=== PATIENT | female | born 1970 | race American Indian/Alaskan Native ===

== ENCOUNTER 2019-03-18 15:15 | Emergency (ER) | payer BC ==
--- NOTE | 2019-03-18 17:47 | Emergency Department Report ---
Blank Doc - Documentation Documentation: The patient was seen in triage for SYNCOPE WITH RESUIDAL LIP LACERATION INTERNAL AND EXTERNAL. NO CHEST PAIN OR SOB. Labs/imaging ordered to evaluate for a cause of this complaint. Vital signs reviewed, patient awake and alert in NAD.
[2019-03-18 18:13] LABS: Basophils % (Auto) 0.4 % (0.0-1.8); Eosinophils % (Auto) 0.3 % (0.0-4.3); Hematocrit 38.8 % (30.3-42.9); Hemoglobin 13.6 gm/dl (10.1-14.3); Lymphocytes # (Auto) 1.3 K/mm3 (1.2-5.4); Lymphocytes % (Auto) 22.8 % (13.4-35.0); Mean Corpuscular HGB Conc 35 % (30-34); Mean Corpuscular Volume 94 fl (79-97); Monocytes # (Auto) 0.4 K/mm3 (0.0-0.8); Monocytes % (Auto) 7.5 % (0.0-7.3); Platelet Count 196 K/mm3 (140-440); Red Blood Count 4.11 M/mm3 (3.65-5.03); Red Cell Distribution Width 13.2 % (13.2-15.2)
--- NOTE | 2019-03-18 18:18 | XRay Report ---
CHEST PA AND LATERAL VIEWS INDICATION: SYNCOPE. COMPARISON: None. FINDINGS: Support devices: None. Heart: Within normal limits. Lungs/Pleura: No acute pulmonary or pleural findings. IMPRESSION: 1. No significant abnormality. Signer Name: Daniel Mcdonald MD Signed: 03/18/2019 6:13 PM Workstation Name: [id number]
[2019-03-18] MEDS ORDERED: SODIUM CHLORIDE 0.9% 1000 ML 1,000 ML IV ONE (18:28)
[2019-03-18] MEDS ORDERED: ACETAMINOPHEN 500 MG TAB PO ONE (18:29)
[2019-03-18] MEDS ORDERED: MECLIZINE 25 MG TAB PO ONE (18:29)
[2019-03-18 18:41] LABS: Alanine Aminotransferase 10 units/L (7-56); Albumin 4.4 g/dL (3.9-5); BUN/Creatinine Ratio 21; Blood Urea Nitrogen 15 mg/dL (7-17); Calcium 9.6 mg/dL (8.4-10.2); Hemolysis Index 8
--- NOTE | 2019-03-18 19:03 | Cat Scan Report ---
CT head/brain wo con INDICATION / CLINICAL INFORMATION: 48 years Female; Syncope. TECHNIQUE: Routine CT head without contrast. All CT scans at this location are performed using CT dos e reduction for ALARA by means of automated exposure control. COMPARISON: None. FINDINGS: BRAIN / INTRACRANIAL CONTENTS: There is mild cerebral white matter disease which includes the externa l capsules and most consistent with microvascular angiopathy. The ventricular system is within normal limits in size and configuration. There is no clear CT evidence of acute intracranial hemorrhage or significant mass effect at. There are incidental smaller foci of calcification within the basal gangl ia. ORBITS: No significant abnormality of visualized orbits. SINUSES / MASTOIDS: No significant abnormality the visualized paranasal sinuses or mastoid air cells. CRANIOCERVICAL JUNCTION: No significant abnormality. ADDITIONAL FINDINGS: None. IMPRESSION: 1. There is microvascular angiopathy as described without CT evidence of acute intracranial hemorrhag e. Signer Name: Shlomo Arreguin MD Signed: 03/18/2019 6:58 PM Workstation Name: [id number]
--- NOTE | 2019-03-18 22:07 | Emergency Department Report ---
ED Syncope HPI - General Chief Complaint: Syncope Stated Complaint: FAINTED/LIP INJURY Time Seen by Provider: 03/18/19 17:45 Source: patient Exam Limitations: no limitations - History of Present Illness Initial Comments: Patient is a 48-year-old -[place] female with a history of hypothyroidism who presents to the ED with complaint of lower lip laceration with bleeding after she fell down at home due to a single episode of syncope with brief loss of consciousness about 8 hours ago. Patient states that she had not been feeling well in the last 24 hours, characterized by generalized weakness intermittent abdominal bloating with nausea and that about 12 hours ago she woke up with persistent abdominal discomfort and went to the bathroom for bowel movement hoping to relieve her symptoms bowel movement. Patient says that she only voided urine but was unable to have a bowel movement. Patient states that she the bathroom and started walking back to her bed but was woken up by her boyfriend and family surrounding. Patient states that she cannot remember events prior to and after the syncope episode. Patient states that she may have hit her mouth on the toilet seat and in the process bit the lower lip and thereby resulting in lower lip laceration. Patient denies shortness of breath, chest pain, headache, dizziness, change in vision, palpitations, seizures, cough, abdominal pain, fever, chills, nasal and sinus congestion, or upper and lower extremities weakness. Timing/Prior Episodes: no prior history Precipitating Factors: Positive: lightheadedness, nausea. Negative: blurred vision, confusion, diaphoresis, pain, recent head trauma, rapid heart beat, unknown Context: standing Loss of Consciousness: brief (seconds) Current Symptoms: back to normal, injury (lower lip laceration). denies: blurred vision, chest pain, diaphoresis, dizziness, headache, lightheadedness, loss of bladder control, loss of bowel control, motionless, nausea, pale, shallow/rapid breathing, weak/absent pulse - Related Data Allergies/Adverse Reactions: Allergies No Known Allergies Allergy (Unverified 03/18/19 17:49) Home Medications: Ambulatory Orders Ibuprofen [Motrin] 600 mg PO Q8H PRN #20 tablet 03/18/19 Meclizine [Antivert] 25 mg PO Q8H PRN #30 tablet 03/18/19 cephALEXin [Keflex] 500 mg PO Q8HR #30 cap 03/18/19 ED Review of Systems ROS: Stated complaint: FAINTED/LIP INJURY Other details as noted in HPI Constitutional: malaise. denies: chills, fever Eyes: denies: eye pain, eye discharge, vision change ENT: other (lower lip laceration). denies: ear pain, throat pain Respiratory: denies: cough, shortness of breath, wheezing Cardiovascular: denies: chest pain, palpitations Endocrine: no symptoms reported Gastrointestinal: nausea. denies: abdominal pain, vomiting, diarrhea Genitourinary: denies: urgency, dysuria, discharge Musculoskeletal: denies: back pain, joint swelling, arthralgia Skin: denies: rash, lesions Neurological: other (syncope). denies: headache, weakness, paresthesias Psychiatric: denies: anxiety, depression Hematological/Lymphatic: denies: easy bleeding, easy bruising ED Past Medical Hx - Past Medical History Previous Medical History?: Yes Additional medical history: hyperthyroidism - Surgical History Past Surgical History?: Yes Additional Surgical History: thyroid X 2, tonsils, 2 c section - Social History Smoking Status: Never Smoker Substance Use Type: None - Medications Home Medications: Home Medications Medication Instructions Recorded Confirmed Last Taken Type Ibuprofen [Motrin] 600 mg PO Q8H PRN #20 tablet 03/18/19 Unknown Rx Meclizine [Antivert] 25 mg PO Q8H PRN #30 tablet 03/18/19 Unknown Rx cephALEXin [Keflex] 500 mg PO Q8HR #30 cap 03/18/19 Unknown Rx ED Physical Exam - General Limitations: No Limitations General appearance: alert, in no apparent distress - Head Head exam: Present: other (lower lip laceration) - Eye Eye exam: Present: normal appearance, PERRL, EOMI Pupils: Present: normal accommodation - ENT ENT exam: Present: normal orophraynx, mucous membranes moist, TM's normal bilaterally, normal external ear exam, other (lower lip laceration) - Neck Neck exam: Present: normal inspection, full ROM. Absent: tenderness - Respiratory Respiratory exam: Present: normal lung sounds bilaterally. Absent: respiratory distress, wheezes, rales, rhonchi, chest wall tenderness, accessory muscle use - Cardiovascular Cardiovascular Exam: Present: regular rate, normal rhythm, normal heart sounds. Absent: systolic murmur, diastolic murmur, rubs, gallop - GI/Abdominal GI/Abdominal exam: Present: soft, normal bowel sounds. Absent: tenderness, guarding, rebound, hyperactive bowel sounds, hypoactive bowel sounds - Extremities Exam Extremities exam: Present: normal inspection, full ROM, normal capillary refill - Back Exam Back exam: Present: normal inspection, full ROM. Absent: tenderness, muscle spasm, paraspinal tenderness - Neurological Exam Neurological exam: Present: alert, oriented X3, CN II-XII intact, normal gait, reflexes normal - Psychiatric Psychiatric exam: Present: normal affect, normal mood - Skin Skin exam: Present: warm, dry, intact, normal color, other (Bleeding lower lip laceration). Absent: rash ED Course Vital Signs 03/18/19 15:45 Temperature 98.1 F Pulse Rate 75 Respiratory 18 Rate Blood Pressure 118/79 O2 Sat by Pulse 99 Oximetry ED Medical Decision Making - Lab Data Result diagrams: 03/18/19 17:56 03/18/19 17:56 - EKG Data Rate: bradycardia - EKG Data 03/18/19 22:21 EKG shows sinus barricading with ventricular rate of [address] or T-wave abnormalities. - Radiology Data Radiology results: report reviewed, image reviewed Findings [facility] [address] [place] [address] Cat Scan Report Signed Patient: CHARLES BURNHAM MR#: [id number] : 1970 Acct:[id number] Age/Sex: 48 / F ADM Date: 03/18/19 Loc: ED Attending Dr: Ordering Physician: NUPUR LACY Date of Service: 03/18/19 Procedure(s): CT head/brain wo con Accession Number(s): [id number] cc: NUPUR LACY CT head/brain wo con INDICATION / CLINICAL INFORMATION: 48 years Female; Syncope. TECHNIQUE: Routine CT head without contrast. All CT scans at this location are performed using CT dose reduction for ALARA by means of automated exposure control. COMPARISON: None. FINDINGS: BRAIN / INTRACRANIAL CONTENTS: There is mild cerebral white matter disease which includes the external capsules and most consistent with microvascular angiopathy. The ventricular system is wi thin normal limits in size and configuration. There is no clear CT evidence of acute intracranial hemorrhage or significant mass effect at. There are incidental smaller foci of calcification within the basal ganglia. ORBITS: No significant abnormality of visualized orbits. SINUSES / MASTOIDS: No significant abnormality the visualized paranasal sinuses or mastoid air cells. CRANIOCERVICAL JUNCTION: No significant abnormality. ADDITIONAL FINDINGS: None. IMPRESSION: 1. There is microvascular angiopathy as described without CT evidence of acute intracranial hemorrhage. Signer Name: Shlomo Arreguin MD Signed: 03/18/2019 6:58 PM Workstation Name: [id number] Transcribed By: MR Dictated By: Shlomo Arreguin MD Electronically Authenticated By: Shlomo Arreguin MD Signed Date/Time: 03/18/191857 DD/ 54 TD/TT: - Medical Decision Making This is a 48-year-old -[place] female with no past medical history except hypothyroidism who presented to the ED with lower lip laceration due to following this single syncope episode at home about 8 hours ago. In the ED, patient is alert and oriented 3 and is not in distress. EKG shows sinus bradycardia with ventricular rate of [address] or T-wave abnormalities. Lab test results were reviewed and are nonactionable including initial and repeat troponin. Chest x-ray shows no acute cardiopulmonary abnormalities or pneumonitis. Head CT scan without contrast shows mild cerebral white matter disease which includes the external capsules and most consistent with microvascular angiopathy. The ventricular system is within normal limits in size and configuration. There is no clear CT evidence of acute intracranial hemorrhage or significant mass effect at. There are incidental smaller foci of calcification within the basal ganglia. These findings were discussed with the ED attending physician was advised the patient be discharged home as these changes are chronic and not acute. Patient had the lower lip laceration cleaned thoroughly and a Dermabond applied to close the wound. Patient treated for pain in the ED and also given normal saline 1 L IV bolus. The orthostatic blood pressure the patient was also normal. There for the patient's syncope episode may have been from vasovagal process having stewed fast after sitting down on the toilet seat. On reevaluation, patient is walking normally in the ED stating with no abnormalities. Patient was discharged home on Antivert, prophylactic antibiotics for lower lip laceration on pain medications and is advised to follow-up with her primary care physician in 3-5 days for reevaluation or return to the ED immediately if symptoms get worse. - Differential Diagnosis Syncope; Head injury; Laceration; ACS; Seizures Critical care attestation.: If time is entered above; I have spent that time in minutes in the direct care of this critically ill patient, excluding procedure time. ED Disposition Clinical Impression: Vasovagal syncope Laceration of lower lip Qualifiers: Encounter type: initial encounter Qualified Code(s): S01.511A - Laceration without foreign body of lip, initial encounter Contusion of face Qualifiers: Encounter type: initial encounter Qualified Code(s): S00.83XA - Contusion of other part of head, initial encounter Disposition: TO HOME OR SELFCARE Is pt being admited?: No Does the pt Need Aspirin: No Condition: Stable Instructions: Syncope (ED), Laceration (ED), Skin Adhesive Care (ED), Scalp Contusion in Adults (ED) Additional Instructions: Take medications with food, drink plenty of fluids and follow-up with your primary care physician in 3-5 days for reevaluation. Return to the ED immediately if symptoms get worse. Prescriptions: Meclizine [Antivert] 25 mg PO Q8H PRN #30 tablet PRN Reason: Vertigo cephALEXin [Keflex] 500 mg PO Q8HR #30 cap Ibuprofen [Motrin] 600 mg PO Q8H PRN #20 tablet PRN Reason: Pain Referrals: CHIKA ADAMS MD [Staff Physician] - 3-5 Days Time of Disposition: 22:09 Print Language: BELARUSIAN
[2019-03-18 22:17] VITALS: BP 133/63
== END 2019-03-18 22:31 | disposition home or self-care (01) ==
LOC: ED 15:15
DX: S01.511A Laceration without foreign body of lip, initial encounter (principal); R55 Syncope and collapse; E05.90 Thyrotoxicosis, unspecified without thyrotoxic crisis or storm; W19.XXXA Unspecified fall, initial encounter; Y93.89 Activity, other specified; Y92.89 Other specified places as the place of occurrence of the external cause; Y99.8 Other external cause status
CPT/HCPCS: 36415; 70450; 71046; 80053; 84443; 84484; 85025; 93005; 93010; 99284; J7030

== ENCOUNTER 2020-01-29 12:39 | Emergency (ER) | payer SELFPAY ==
--- NOTE | 2020-01-29 13:07 | Emergency Department Report ---
Blank Doc - Documentation Documentation: 49-year-old female that presents with right flank pain and cramping senastion to right leg. Denies any injuries. Stated has not been taking Levothyorxin over 1 year. This initial assessment/diagnostic orders/clinical plan/treatment(s) is/are subject to change based on patient's health status, clinical progression and re- assessment by fellow clinical providers in the ED. Further treatment and workup at subsequent clinical providers discretion. Patient/guardians urged not to elope from the ED as their condition may be serious if not clinically assessed and managed. Initial orders include: 1- Patient sent to [facility] for further evaluation and treatment 2- labs 3- UA
[2020-01-29 13:29] LABS: Basophils % (Auto) 0.3 % (0.0-1.8); Eosinophils % (Auto) 1.2 % (0.0-4.3); Hematocrit 39.8 % (30.3-42.9); Hemoglobin 13.9 gm/dl (10.1-14.3); Lymphocytes # (Auto) 1.7 K/mm3 (1.2-5.4); Mean Corpuscular HGB Conc 35 % (30-34); Mean Corpuscular Volume 98 fl (79-97); Monocytes # (Auto) 0.3 K/mm3 (0.0-0.8); Monocytes % (Auto) 9.1 % (0.0-7.3); Platelet Count 180 K/mm3 (140-440); Red Blood Count 4.06 M/mm3 (3.65-5.03); Red Cell Distribution Width 13.2 % (13.2-15.2)
[2020-01-29 13:46] LABS: BUN/Creatinine Ratio 14; Blood Urea Nitrogen 11 mg/dL (7-17); Hemolysis Index 3
[2020-01-29 13:46] LABS: Bilirubin,Urine NEG (Negative); Blood,Urine NEG (Negative); Color,Urine Straw (Yellow); Protein,Urine <15 mg/dL mg/dL (Negative); Urobilinogen,Urine < 2.0 mg/dL (<2.0); WBC,Urine < 1.0 /HPF (0.0-6.0)
--- NOTE | 2020-01-29 14:14 | Emergency Department Report ---
ED General Adult HPI - General Chief complaint: Back Pain/Injury Stated complaint: LOW BACK PAIN/RT LEG PAIN Time Seen by Provider: 01/29/20 13:07 Source: patient Mode of arrival: Ambulatory Limitations: No Limitations - History of Present Illness Initial comments: 49-year-old female presenting with chief complaint of right leg pain and weakness which has been going on for several months, also reporting some intermittent lower back pain on the right side. She denies any numbness in the leg, denies any bowel or bladder dysfunction/changes and states that she felt that she finally needed to see someone because it has not been getting better and has been going on for so long. Denies any fevers or other complaints. Pain is rated as moderate at times worsened with certain movements better with certain positions. - Related Data Previous Rx's Medication Instructions Recorded Last Taken Type Ibuprofen [Motrin] 600 mg PO Q8H PRN #20 tablet 03/18/19 Unknown Rx Meclizine [Antivert] 25 mg PO Q8H PRN #30 tablet 03/18/19 Unknown Rx cephALEXin [Keflex] 500 mg PO Q8HR #30 cap 03/18/19 Unknown Rx Cyclobenzaprine [Flexeril] 10 mg PO TID PRN #15 tablet 01/29/20 Unknown Rx Levothyroxine [Synthroid] 100 mcg PO QAM #90 tablet 01/29/20 Unknown Rx Prednisone [predniSONE 10 mg 10 mg PO .TAPER #1 tab.ds.pk 01/29/20 Unknown Rx (6-Day Pack, 21 Tabs)] Allergies Allergy/AdvReac Type Severity Reaction Status Date / Time No Known Allergies Allergy Unverified 03/18/19 17:49 ED Review of Systems ROS: Stated complaint: LOW BACK PAIN/RT LEG PAIN Other details as noted in HPI Comment: All other systems reviewed and negative Musculoskeletal: as per HPI ED Past Medical Hx - Past Medical History Previous Medical History?: No Additional medical history: hyperthyroidism - Surgical History Additional Surgical History: thyroid X 2, tonsils, 2 c section - Social History Smoking Status: Never Smoker - Medications Home Medications: Home Medications Medication Instructions Recorded Confirmed Last Taken Type Ibuprofen [Motrin] 600 mg PO Q8H PRN #20 tablet 03/18/19 Unknown Rx Meclizine [Antivert] 25 mg PO Q8H PRN #30 tablet 01/07/20 Unknown Rx cephALEXin [Keflex] 500 mg PO Q8HR #30 cap 03/18/19 Unknown Rx Cyclobenzaprine [Flexeril] 10 mg PO TID PRN #15 tablet 01/29/20 Unknown Rx Levothyroxine [Synthroid] 100 mcg PO QAM #90 tablet 01/29/20 Unknown Rx Prednisone [predniSONE 10 mg 10 mg PO .TAPER #1 tab.ds.pk 01/29/20 Unknown Rx (6-Day Pack, 21 Tabs)] ED Physical Exam - General Limitations: No Limitations General appearance: alert, in no apparent distress - Head Head exam: Present: atraumatic, normocephalic - Eye Eye exam: Present: normal appearance - ENT ENT exam: Present: mucous membranes moist - Neck Neck exam: Present: normal inspection - Respiratory Respiratory exam: Present: normal lung sounds bilaterally. Absent: respiratory distress - Cardiovascular Cardiovascular Exam: Present: regular rate, normal rhythm. Absent: systolic murmur, diastolic murmur, rubs, gallop - GI/Abdominal GI/Abdominal exam: Present: soft, normal bowel sounds. Absent: distended, tenderness, guarding, rebound - Extremities Exam Extremities exam: Present: normal inspection, other (Some tenderness over the lateral right hip) - Back Exam Back exam: Present: normal inspection, other (Pain in the area of the right sciatic notch, no midline spinal pain or tenderness, positive straight leg raise). Absent: vertebral tenderness - Neurological Exam Neurological exam: Present: alert, oriented X3, other (Right leg with 4+ out of 5 strength, patient states that this is chronic, diminished patellar reflex) - Psychiatric Psychiatric exam: Present: normal affect, normal mood - Skin Skin exam: Present: warm, dry, intact, normal color. Absent: rash ED Course Vital Signs 01/29/20 12:58 Temperature 97.6 F Pulse Rate 47 L Respiratory 18 Rate Blood Pressure 173/91 O2 Sat by Pulse 97 Oximetry ED Medical Decision Making - Lab Data Result diagrams: 01/29/20 13:15 01/29/20 13:15 - Radiology Data Radiology results: report reviewed Right hip and L-spine x-rays show degenerative changes - Medical Decision Making Patient presents with low back pain rating down the right leg, states that it has been going on for quite some time but she thought she should get seen and have some x-rays done. She states that she has not seen a primary care doctor or any specialist for this problem and that her leg has been weak for years and there are no acute symptoms or symptoms that have changed recently. No bowel or bladder changes, no saddle anesthesia. On my exam there is some mild weakness to the right lower extremity with diminished patellar reflexes, pain in the area of the right sciatic notch. No midline spinal pain or tenderness. I do not see any indication for advanced MRI imaging at this time as suspicion for cauda equina is low and findings are chronic in nature per patient. I did advise that we will obtain x-rays, offered medications which she states she does not like to take but recommend outpatient follow-up with neurosurgery. Imaging does show degenerative changes as expected, labs show quite high TSH, will resume her 100 mcg daily dosage that she has been off of for several months. Also recommend outpatient follow-up with orthopedics or neurosurgery. - Differential Diagnosis Sciatica, arthritis, malignancy Critical care attestation.: If time is entered above; I have spent that time in minutes in the direct care of this critically ill patient, excluding procedure time. ED Disposition Clinical Impression: Right leg pain Hypothyroidism Qualifiers: Hypothyroidism type: unspecified Qualified Code(s): E03.9 - Hypothyroidism, unspecified Disposition: DC-01 TO HOME OR SELFCARE Is pt being admited?: No Condition: Stable Instructions: Hypothyroidism, Sciatica Prescriptions: Cyclobenzaprine [Flexeril] 10 mg PO TID PRN #15 tablet PRN Reason: Muscle Spasm Prednisone [predniSONE 10 mg (6-Day Pack, 21 Tabs)] 10 mg PO .TAPER #1 tab.ds.pk Levothyroxine [Synthroid] 100 mcg PO QAM #90 tablet Referrals: DEL KAY MD [Staff Physician] - 3-5 Days DL JIANG MD [Staff Physician] - 3-5 Days Time of Disposition: 14:25
--- NOTE | 2020-01-29 14:17 | XRay Report ---
RIGHT HIP AND PELVIS 2 VIEWS LUMBAR SPINE 3 VIEWS INDICATION: hip pain. Low back pain. COMPARISON: No relevant prior imaging study available. FINDINGS: Right hip: There are advanced osteoarthrosis changes at the hips bilaterally evidenced by severe join t space narrowing and subchondral changes. There is a prominent subchondral cyst in the left superior acetabulum. No acute, displaced fracture, dislocation, or femoral head osteonecrosis is seen. Pubic symphysis and SI joints are within normal limits. Punctate phleboliths are noted in the pelvis. Lumbar spine: No acute skeletal abnormality. There is moderate disc space narrowing at L2-3. Mild spo ndylosis is noted throughout the remainder of the lumbar spine. Alignment is normal. IMPRESSION: 1. No acute findings. 2. Degenerative changes as above. Signer Name: Daniel Mcdonald MD Signed: 01/29/2020 2:12 PM Workstation Name: [id number]
[2020-01-29 15:40] VITALS: BP 153/97
== END 2020-01-29 15:02 | disposition home or self-care (01) ==
LOC: ED 12:39
DX: M79.604 Pain in right leg (principal); E03.9 Hypothyroidism, unspecified; Z79.899 Other long term (current) drug therapy
CPT/HCPCS: 36415; 72100; 80048; 81001; 84443; 85025; 99283

== ENCOUNTER 2021-04-06 11:53 | Emergency (ER) | payer BC ==
[2021-04-06 12:12] VITALS: BP 164/95
--- NOTE | 2021-04-06 13:18 | Emergency Department Report ---
ED Syncope HPI - General Chief Complaint: Syncope Stated Complaint: HIT HEAD RGHT SIDE Time Seen by Provider: 04/06/21 13:14 - History of Present Illness Initial Comments: Patient presents secondary to syncope. She had been smoking marijuana. She felt she had to go to the bathroom. After going to the bathroom she stood up, felt like she was moving in slow motion, and then passed out. She has had this happen before. She states that frequently when she smokes marijuana she passes out and faints. And also was related to going to the restroom. Patient had no chest pain or palpitations. She had no shortness of breath. She states that she did hit her head, but just scraped it. This happened last night. She decided to come in today to be seen. She has no symptoms at this time. She does not feel dizzy or lightheaded. She has not been ill. - Related Data Allergies/Adverse Reactions: Allergies No Known Allergies Allergy (Verified 04/06/21 12:12) Home Medications: Ambulatory Orders Ibuprofen [Motrin] 600 mg PO Q8H PRN #20 tablet 03/18/19 Meclizine [Antivert] 25 mg PO Q8H PRN #30 tablet 03/18/19 cephALEXin [Keflex] 500 mg PO Q8HR #30 cap 03/18/19 Cyclobenzaprine [Flexeril] 10 mg PO TID PRN #15 tablet 01/29/20 Levothyroxine [Synthroid] 100 mcg PO QAM #90 tablet 01/29/20 Prednisone [predniSONE 10 mg (6-Day Pack, 21 Tabs)] 10 mg PO .TAPER #1 tab.ds.pk 01/29/20 ED Review of Systems ROS: Stated complaint: HIT HEAD RGHT SIDE Other details as noted in HPI Comment: All other systems reviewed and negative Constitutional: denies: fever Eyes: denies: vision change ENT: denies: throat pain Respiratory: denies: cough Cardiovascular: denies: chest pain Endocrine: denies: unexplained weight loss Gastrointestinal: denies: abdominal pain Genitourinary: denies: dysuria Musculoskeletal: denies: back pain Skin: denies: rash Neurological: as per HPI Hematological/Lymphatic: denies: easy bruising ED Past Medical Hx - Past Medical History Additional medical history: hyperthyroidism - Surgical History Additional Surgical History: thyroid X 2, tonsils, 2 c section - Family History Family history: no significant - Social History Smoking Status: Never Smoker - Medications Home Medications: Home Medications Medication Instructions Recorded Confirmed Last Taken Type Ibuprofen [Motrin] 600 mg PO Q8H PRN #20 tablet 03/18/19 Unknown Rx Meclizine [Antivert] 25 mg PO Q8H PRN #30 tablet 03/18/19 Unknown Rx cephALEXin [Keflex] 500 mg PO Q8HR #30 cap 03/18/19 Unknown Rx Cyclobenzaprine [Flexeril] 10 mg PO TID PRN #15 tablet 01/29/20 Unknown Rx Levothyroxine [Synthroid] 100 mcg PO QAM #90 tablet 01/29/20 Unknown Rx Prednisone [predniSONE 10 mg 10 mg PO .TAPER #1 tab.ds.pk 01/29/20 Unknown Rx (6-Day Pack, 21 Tabs)] ED Physical Exam - General Limitations: No Limitations, Other (Pulse ox noted and normal) General appearance: alert, in no apparent distress - Head Head exam: Present: normocephalic, other (Scalp abrasion to the right parietal area) - Eye Eye exam: Present: normal appearance, PERRL, EOMI. Absent: scleral icterus - ENT ENT exam: Present: normal orophraynx, normal external ear exam - Neck Neck exam: Present: normal inspection. Absent: tenderness, meningismus - Respiratory Respiratory exam: Present: normal lung sounds bilaterally. Absent: respiratory distress - Cardiovascular Cardiovascular Exam: Present: regular rate, normal rhythm - GI/Abdominal GI/Abdominal exam: Present: soft. Absent: distended - Extremities Exam Extremities exam: Present: normal capillary refill. Absent: calf tenderness - Back Exam Back exam: Absent: CVA tenderness (R), CVA tenderness (L), vertebral tenderness - Neurological Exam Neurological exam: Present: alert, oriented X3, CN II-XII intact, normal gait, reflexes normal, other (NIH score 0). Absent: motor sensory deficit - Psychiatric Psychiatric exam: Present: normal affect, normal mood - Skin Skin exam: Present: warm, dry ED Course Vital Signs 04/06/21 12:11 Temperature 98.3 F Pulse Rate 63 Respiratory 14 Rate Blood Pressure 164/95 [Left] O2 Sat by Pulse 100 Oximetry - Reevaluation(s) Reevaluation #1: 04/06/21 13:17 Labs have been ordered. EKG was noted. Old records reviewed. Reevaluation #2: 04/06/21 14:21 Work-up was complete and the patient was discharged. ED Medical Decision Making - Lab Data Result diagrams: 04/06/21 12:50 04/06/21 12:50 - EKG Data -: EKG Interpreted by Me - EKG Data 04/06/21 13:17 1216-EKG shows sinus bradycardia 56. QRS is normal at 97. QT corrected is normal at 1-28. Patient has no ST elevation to suggest any per there is no ST depression suggestive of ischemia. There is no ectopy. Patient has good R wave progression. This is a normal EKG. - Medical Decision Making Patient presented with syncope. This seems to be more micturition or vasovagal in nature. She states that it happens multiple times. She has outlined numerous times when this is happened after smoking marijuana and going to the restroom. I suspect her blood pressure had dropped secondary to vasodilatation. She then use the restroom and stood up. This led to the syncope. She certainly does not have neurologic symptom or deficit. There is no evidence of dysrhythmia. She has had these episodes for years. It is unlikely that this is been some arrhythmia this entire time. Patient was treated symptomatically and referred. I certainly do not believe she requires admission. Critical Care Time: No Critical care attestation.: If time is entered above; I have spent that time in minutes in the direct care of this critically ill patient, excluding procedure time. ED Disposition Clinical Impression: Vasovagal syncope Disposition: HOME / SELF CARE / HOMELESS Is pt being admited?: No Condition: Stable Instructions: Syncope (ED), Syncope Additional Instructions: Drink plenty water. Stand up slowly. Return for problems. Follow-up with a abel soni doctor for recheck and further evaluation. Referrals: BETHANY TOM MD [Primary Care Provider] - 3-5 Days STEFFANIE PEDERSEN MD [Staff Physician] - 3-5 Days
[2021-04-06 13:26] LABS: Basophils % (Auto) 0.2 % (0.0-1.8); Eosinophils % (Auto) 0.3 % (0.0-4.3); Hematocrit 39.6 % (30.3-42.9); Lymphocytes # (Auto) 1.4 K/mm3 (1.2-5.4); Lymphocytes % (Auto) 30.9 % (13.4-35.0); Mean Corpuscular HGB Conc 33 % (30-34); Mean Corpuscular Volume 96 fl (79-97); Monocytes # (Auto) 0.3 K/mm3 (0.0-0.8); Monocytes % (Auto) 6.8 % (0.0-7.3); Platelet Count 187 K/mm3 (140-440); Red Blood Count 4.13 M/mm3 (3.65-5.03); Red Cell Distribution Width 12.5 % (13.2-15.2)
[2021-04-06 13:45] LABS: Alanine Aminotransferase 11 units/L (7-56); Albumin 4.2 g/dL (3.9-5); Blood Urea Nitrogen 11 mg/dL (7-17); Calcium 9.8 mg/dL (8.4-10.2); Hemolysis Index 6
[2021-04-06 13:51] LABS: BUN/Creatinine Ratio 16
--- NOTE | 2021-04-07 08:49 | Electrocardiograph Report ---
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
== END 2021-04-06 14:31 | disposition home or self-care (01) ==
LOC: ED 11:53
DX: R55 Syncope and collapse (principal)
CPT/HCPCS: 36415; 80053; 84484; 85025; 93005; 93010; 99283